=== PATIENT | female | born 1990 | race Hispanic/Latino ===

== ENCOUNTER 2019-12-03 00:01 | Emergency (ER) | payer MEDICAID, OTHER ==
[~2019-12-03 00:01] MED LIST: TYL3 PO
[2019-12-03] MEDS ORDERED: ONDANSETRON 4 MG TABLET ONE (03:04)
== END 2019-12-03 03:12 | disposition home or self-care (01) ==
LOC: EDH 00:01
DX: S00.03XA Contusion of scalp, initial encounter (principal); F07.81 Postconcussional syndrome; Z98.890 Other specified postprocedural states; Y08.89XA Assault by other specified means, initial encounter; Y93.89 Activity, other specified; Y92.89 Other specified places as the place of occurrence of the external cause; Y99.8 Other external cause status
CPT/HCPCS: 70450; 70486; 81025; 99285; Q0162